=== PATIENT | female | born 2000 | race Caucasian/White ===

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

== ENCOUNTER → 2025-02-21 11:05 | Outpatient (BNVA) | payer OTHER, SELFPAY | PROVIDERS: PCP Family Medicine; Visit Provider Nurse Practitioner Women's Health | DX: Z34.91 Encounter for supervision of normal pregnancy, unspecified, first trimester (principal); Z3A.01 Less than 8 weeks gestation of pregnancy; N91.2 Amenorrhea, unspecified | CPT/HCPCS: 81025; 84702; 86850; 86900 ==